=== PATIENT | male | born 1995 | race Asian ===

== ENCOUNTER 2025-08-16 13:45 | Emergency (ER) | payer OTHER, SELFPAY ==
[2025-08-16 14:10] VITALS: BP 142/76; PULSE 49; RESP 16; TEMP 36.9; O2SAT 98; BMI 27.2
--- NOTE | 2025-08-16 14:15 | DI.RAD.S_ITS ---
PROCEDURE: XR ANKLE RT MIN 3V INDICATIONS: ankle injury TECHNIQUE: 3 views of the ankle were acquired. COMPARISON: None. FINDINGS: Bones: No fractures or dislocations. Ankle mortise is normally aligned. No suspicious bony lesions. Soft tissues: Moderate tibiotalar joint effusion. Achilles tendon appears normal. IMPRESSION: No acute bony abnormality. Moderate joint effusion. Internal derangement not excluded. Dictated by: Jensen Pineda M.D. on 08/16/2025 at 16:04 Approved by: Jensen Pineda M.D. on 08/16/2025 at 16:04
== END 2025-08-16 15:55 | disposition left against medical advice (07) ==
PROVIDERS: Emergency Provider Emergency Medicine
DX: S99.911A Unspecified injury of right ankle, initial encounter (principal)
CPT/HCPCS: 73610; 99281